=== PATIENT | female | born 1950 | race Caucasian/White ===

== ENCOUNTER → 2016-12-08 | Outpatient (CLI) | payer MEDICARE, OTHER ==
[~2016-12-08] MED LIST: BENADRYL25 M2 PO; CALCIUM + D 6001 TA1 PO; COLACE 100100 MG/CAP PO; CYMBALTA 60MG60 MG PO; MULTIPLE VITAMI1 TAB PO; VITAMIN B121000 MCG PO; ZANTAC 7575 MG PO; ZOCOR 20MG20 MG PO
== END ==
LOC: COL.RAD 07:30
DX: K21.9 Gastro-esophageal reflux disease without esophagitis (principal); R07.89 Other chest pain; F41.8 Other specified anxiety disorders
CPT/HCPCS: A9541

== ENCOUNTER 2018-04-15 07:42 | Day surgery (SDC) | payer MEDICARE, OTHER ==
[~2018-04-15] VITALS: Ht 170.2 cm; Wt 91.2 kg
[2018-04-15] MEDS ORDERED: MEVACOR40 MG PO (08:06)
[2018-04-15] MEDS ORDERED: CYMBALTA 60MG60 MG PO (08:06)
[2018-04-15] MEDS ORDERED: XANAX 0.5MG0.5 MG PO (08:07)
[2018-04-15] MEDS ORDERED: ALDACTONE50 MG PO (08:07)
[2018-04-15] MEDS ORDERED: LAMICTAL150 MG PO (08:07)
[2018-04-15] MEDS ORDERED: HYGROTON 2525 MG/TAB PO (08:08)
[2018-04-15] MEDS ORDERED: PAMELOR 25MG25 MG PO (08:09)
[2018-04-15] MEDS ORDERED: NORVASC 5MG5 MG/TAB PO (08:09)
[2018-04-15] MEDS ORDERED: PROTONIX 40MG T40 MG PO (08:10)
[2018-04-15] MEDS ORDERED: STOOL SOFTENER100 M2 PO (08:10)
[2018-04-15 08:11] VITALS: BP 140/75; PULSE 90; TEMP 97.9
[2018-04-15] MEDS ORDERED: TURMERIC500 MG PO (08:11)
[2018-04-15] MEDS ORDERED: B COMPLEX & B121 TAB PO (08:11)
[2018-04-15 09:15] VITALS: BP 117/73; PULSE 86; TEMP 97.9
[2018-04-15 09:30] VITALS: BP 127/69; PULSE 84
[2018-04-15 09:45] VITALS: BP 111/82; PULSE 80
== END 2018-04-15 09:55 | disposition home or self-care (01) ==
LOC: SDCO 07:42
DX: K22.2 Esophageal obstruction (principal); R13.12 Dysphagia, oropharyngeal phase; K21.9 Gastro-esophageal reflux disease without esophagitis; Z79.899 Other long term (current) drug therapy; Z83.71 Family history of colonic polyps; Z80.0 Family history of malignant neoplasm of digestive organs; F17.210 Nicotine dependence, cigarettes, uncomplicated
CPT/HCPCS: C1726; J2250; J3010; J7030

== ENCOUNTER → 2018-12-14 | Outpatient (CLI) | payer MEDICARE, OTHER ==
[~2018-12-14] MED LIST changes: +ALDACTONE50 MG PO; +B COMPLEX & B121 TAB PO; +HYGROTON 2525 MG/TAB PO; +LAMICTAL150 MG PO; +MEVACOR40 MG PO; +NORVASC 5MG5 MG/TAB PO; +PAMELOR 25MG25 MG PO; +PROTONIX 40MG T40 MG PO; +STOOL SOFTENER100 M2 PO; +TURMERIC500 MG PO; +XANAX 0.5MG0.5 MG PO
== END ==
LOC: COL.RAD 07:08
DX: K22.0 Achalasia of cardia (principal); K44.9 Diaphragmatic hernia without obstruction or gangrene; K57.30 Diverticulosis of large intestine without perforation or abscess without bleeding; N26.1 Atrophy of kidney (terminal)
CPT/HCPCS: Q9967

== ENCOUNTER → 2018-12-16 | Outpatient (REF) ==
[2018-12-16 11:34] LABS: THYROID STIMULATING HORMONE 2.64 uIU/mL (0.465-4.680)
== END ==
LOC: ZLAB.WCH 10:46
PROVIDERS: Physician Assistant
DX: Z01.89 Encounter for other specified special examinations (principal)

== ENCOUNTER → 2020-09-16 | Outpatient (CLI) | payer MEDICARE, OTHER | LOC: COL.PUL 07-15 11:30 | DX: J44.9 Chronic obstructive pulmonary disease, unspecified (principal); Z87.891 Personal history of nicotine dependence ==